=== PATIENT | female | born 1990 | race Caucasian/White ===

== ENCOUNTER → 2016-12-16 | Outpatient (CLI) | payer OTHER ==
--- NOTE | 2016-12-16 12:24 | WWHP ---
DATE OF SERVICE: 12/16/2016 CHIEF COMPLAINT: The patient is here for her routine gynecologic exam. HPI: This is a 26-year-old G0 with an LMP of 12/07/16. The patient is sexually active and has used spermicide and withdrawal for control. She states she was given a steroid shot for her eczema about 2 months ago and states she has had 2 periods per month during the past 2 months since that injection. The patient is otherwise without complaints. She is interested in oral contraception for control. PAST MEDICAL HISTORY: Type 2 diabetes, eczema and borderline hypertension. Dr. Duval is her primary care physician. MEDICATIONS: 1. Metformin 500 mg b.i.d. 2. Lisinopril 2.5 mg q. day. Allergies to PENICILLIN which causes hives. Past surgical history is unremarkable. 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 She has no history of STDs. SOCIAL HISTORY: She denies tobacco and drug use and has 0 to 3 alcoholic drinks per year. She has had a total of 3 sexual partners in her lifetime. She has been with her boyfriend for 2 years, but does not live with him. She is currently unemployed. FAMILY HISTORY: Mother had uterine cancer. Maternal grandmother had breast cancer. Grandfather had heart disease. Both parents and a grandmother have diabetes. REVIEW OF SYSTEMS: Weight has been stable. She denies respiratory, cardiac, or GI problems. PHYSICAL EXAM: Blood pressure initially was 138/95, repeat blood pressure is 120/62. Height 5 feet 5 inches. Weight 231 pounds. Temperature 98.0, pulse 106. This a well-developed, heavyset white female who is alert and oriented x3 in no acute distress. HEENT is within normal limits. NECK: Supple without mass or thyromegaly. CHEST AND LUNGS: Clear to auscultation. HEART: Regular rate and rhythm. BREAST EXAM: There are no palpable masses or tenderness but there is a boil noted at the 12 o'clock position in the skin of the left breast which she states has been there for about 2 weeks. This is mildly erythematous and nontender. There is no drainage noted. Axillary exam is negative for adenopathy. BACK: Negative for CVA tenderness. ABDOMEN: Mildly obese, soft, nontender, without palpable masses. PELVIC EXAM: Normal external genitalia. Cervix and vagina appear normal. There is no unusual discharge. There is no cervical motion tenderness. The uterus is midposition, nongravid size and nontender. There are no palpable adnexal masses or tenderness. Bimanual exam is somewhat limited secondary to her size. Rectal exam was deferred. EXTREMITIES: Nontender. There are signs of eczema on both lower extremities. IMPRESSION: 1. A 26-year-old female within normal pelvic examination. 2. Left breast skin boil, which appears benign. 3. History of diabetes and borderline hypertension. PLAN: 1. Pap smear was performed. 2. Self breast examination was discussed. 3. GC and Chlamydia screening from the cervix have been obtained. 4. We had a long discussion regarding control options including barrier methods, hormonal methods, and the IUD. Because of her medical history including borderline hypertension and diabetes, I think combination control pills would be a higher risk for her because of the increased risk for clots, heart attack and stroke. After a long discussion, we have decided to proceed with progestin only contraception and a prescription for Micronor was given to the patient. She understands that this may be less effective than combination oral contraception for preventing . I have recommended that she use an additional control method such as condoms or spermicide to increase effectiveness. I have also recommended that she consider condom use if she is sexually active for STD prevention. 5. We have discussed how she should take the control pill at the same time every day at approximately 4 to 6 p.m. if she is sexually active at night. I have recommended that she start the first pack of pills on the first day of her next normal menstrual period. 6. She will call if she is having problems including menstrual problems or side effects from the control pills. She understands she may not have regular menses with the progestin only contraception. 7. I have also recommended that she check her blood pressure on a regular basis while on control pills and to call if she is having significant blood pressure elevations. 8. Warm compresses to left breast boil. 9. She will return in one year and p.r.n. MTDD
== END | disposition home or self-care (01) ==
LOC: WWCWWP 10:49
PROVIDERS: ATTEND Obstetrics & Gynecology
DX: Z11.3 Encounter for screening for infections with a predominantly sexual mode of transmission (principal)
CPT/HCPCS: 87491; 87591

== ENCOUNTER 2017-04-22 15:27 | Inpatient (IN) | payer OTHER ==
--- NOTE | 2017-04-22 16:11 | ED ---
General Adult HPI - General Chief complaint: Allergic Reaction Stated complaint: Vomiting Time Seen by Provider: 04/22/17 15:59 Source: patient, family, RN notes reviewed Mode of arrival: ambulatory Limitations: no limitations - History of Present Illness Initial comments: Patient is a pleasant 26-year-old female presenting to the emergency department with concern for medication reaction. Patient states onset of symptoms was a few days ago. Patient did have her medication changed on Thursday and questions if this was the reason. Patient did have a couple episodes of emesis this morning. No chest pain. No abdominal pain. No fevers. No swelling of the throat or tongue or face. No new rash. Patient does have chronic rash related to eczema that she has seen a document design specialist for and has been present for years. - Related Data Home Medications Medication Instructions Recorded Confirmed Empagliflozin [Jardiance] 10 mg PO DAILY 04/22/17 04/22/17 Lisinopril [Zestril] 2.5 mg PO DAILY 04/22/17 04/22/17 sitaGLIPtin [Januvia] 100 mg PO DAILY 04/22/17 04/22/17 Allergies Allergy/AdvReac Type Severity Reaction Status Date / Time Penicillins Allergy Unknown Verified 04/22/17 16:36 Childhood shellfish derived [Shrimp] Allergy Rash/Hives Verified 04/22/17 16:36 Review of Systems ROS Statement: Those systems with pertinent positive or pertinent negative responses have been documented in the HPI. ROS Other: All systems not noted in ROS Statement are negative. Constitutional: Denies: fever Eyes: Denies: eye pain ENT: Denies: ear pain, throat pain Respiratory: Reports: dyspnea. Denies: cough Cardiovascular: Denies: chest pain, palpitations Endocrine: Denies: fatigue Gastrointestinal: Reports: nausea, vomiting. Denies: abdominal pain Genitourinary: Denies: dysuria Musculoskeletal: Denies: back pain Skin: Denies: lesions Past Medical History Past Medical History: Diabetes Mellitus, Skin Disorder History of Any Multi-Drug Resistant Organisms: None Reported Past Surgical History: No Surgical Hx Reported Past Psychological History: No Psychological Hx Reported Smoking Status: Never smoker Past Alcohol Use History: None Reported Past Drug Use History: None Reported General Exam Limitations: no limitations General appearance: alert, in no apparent distress Head exam: Present: atraumatic Eye exam: Present: normal appearance, PERRL ENT exam: Present: normal oropharynx, other (No signs of angioedema) Neck exam: Present: normal inspection Respiratory exam: Present: normal lung sounds bilaterally. Absent: respiratory distress, wheezes Cardiovascular Exam: Present: tachycardia GI/Abdominal exam: Present: soft. Absent: distended, tenderness Extremities exam: Present: normal inspection. Absent: pedal edema, calf tenderness Back exam: Present: normal inspection Neurological exam: Present: alert Psychiatric exam: Present: normal affect, normal mood Skin exam: Present: other (Patient has plaques with erythematous base bilateral legs and elbows that she states is chronic.) Course Vital Signs 04/22/17 04/22/17 04/22/17 15:44 17:09 17:35 Temperature 97.8 F Pulse Rate 138 H 115 H 117 H Respiratory 18 18 18 Rate Blood Pressure 168/106 116/89 121/85 O2 Sat by Pulse 98 95 100 Oximetry 04/22/17 18:24 Temperature 98.3 F Pulse Rate 115 H Respiratory 16 Rate Blood Pressure 124/77 O2 Sat by Pulse 98 Oximetry EKG Findings - EKG Comments: EKG Findings:: Sinus tachycardia 119. WA 124. QRS 72. QT 318. QTC 447. Normal axis. Normal QRS. No acute ST change. Procedures - ABG Interpretation Ph: 7.26 PCO2: 19.3 PO2: 146 Bicarbonate: 8.4 Medical Decision Making - Medical Decision Making Patient reevaluated and updated. Patient has significant metabolic acidosis. Likely cause is DKA although is slightly cloudy pitcher with near normal blood sugar. Case was discussed in detail with Dr. Duval, who will admit his patient. He recommends IV fluids. Patient and family updated. - Lab Data Result diagrams: 04/22/17 16:15 04/22/17 16:15 Lab Results 04/22/17 04/22/17 04/22/17 Range/Units 16:15 16:15 16:15 WBC 9.9 (3.8-10.6) k/uL RBC 5.55 H (3.80-5.40) m/uL Hgb 15.8 (11.4-16.0) gm/dL Hct 46.6 H (34.0-46.0) % MCV 84.0 (80.0-100.0) fL MCH 28.5 (25.0-35.0) pg MCHC 33.9 (31.0-37.0) g/dL RDW 13.9 (11.5-15.5) % Plt Count 385 (150-450) k/uL Neutrophils % 72 % Lymphocytes % 18 % Monocytes % 6 % Eosinophils % 2 % Basophils % 0 % Neutrophils # 7.1 (1.3-7.7) k/uL Lymphocytes # 1.8 (1.0-4.8) k/uL Monocytes # 0.6 (0-1.0) k/uL Eosinophils # 0.2 (0-0.7) k/uL Basophils # 0.0 (0-0.2) k/uL PT (9.0-12.0) sec INR (<1.2) APTT (22.0-30.0) sec D-Dimer (<0.60) mg/L FEU Sample Site ABG pH (7.35-7.45) ABG pCO2 (35-45) mmHg ABG pO2 (83-108) mmHg ABG HCO3 (21-25) mmol/L ABG Total CO2 (19-24) mmol/L ABG O2 Saturation (94-97) % ABG Base Excess mmol/L FiO2 % Sodium 137 (137-145) mmol/L Potassium 4.6 (3.5-5.1) mmol/L Chloride 107 (98-107) mmol/L Carbon Dioxide 9 L* (22-30) mmol/L Anion Gap 21 mmol/L BUN 10 (7-17) mg/dL Creatinine 0.77 (0.52-1.04) mg/dL Est GFR (MDRD) Af Amer >60 (>60 ml/min/1.73 sqM) Est GFR (MDRD) Non-Af >60 (>60 ml/min/1.73 sqM) Glucose 141 H (74-99) mg/dL Calcium 9.4 (8.4-10.2) mg/dL Total Bilirubin 1.0 (0.2-1.3) mg/dL AST 47 H (14-36) U/L ALT 98 H (9-52) U/L Alkaline Phosphatase 88 (38-126) U/L Total Creatine Kinase 27 L (30-135) U/L CK-MB (CK-2) <0.2 (0.0-2.4) ng/mL CK-MB (CK-2) Rel Index Troponin I <0.012 (0.000-0.034) ng/mL Total Protein 8.6 H (6.3-8.2) g/dL Albumin 5.1 H (3.5-5.0) g/dL Acetone, Qual (Negative) 04/22/17 04/22/17 04/22/17 Range/Units 16:15 16:15 17:46 WBC (3.8-10.6) k/uL RBC (3.80-5.40) m/uL Hgb (11.4-16.0) gm/dL Hct (34.0-46.0) % MCV (80.0-100.0) fL MCH (25.0-35.0) pg MCHC (31.0-37.0) g/dL RDW (11.5-15.5) % Plt Count (150-450) k/uL Neutrophils % % Lymphocytes % % Monocytes % % Eosinophils % % Basophils % % Neutrophils # (1.3-7.7) k/uL Lymphocytes # (1.0-4.8) k/uL Monocytes # (0-1.0) k/uL Eosinophils # (0-0.7) k/uL Basophils # (0-0.2) k/uL PT 10.6 (9.0-12.0) sec INR 1.0 (<1.2) APTT 24.9 (22.0-30.0) sec D-Dimer 0.28 (<0.60) mg/L FEU Sample Site RRAD ABG pH 7.26 L (7.35-7.45) ABG pCO2 19 L* (35-45) mmHg ABG pO2 146 H (83-108) mmHg ABG HCO3 8 L* (21-25) mmol/L ABG Total CO2 9 L (19-24) mmol/L ABG O2 Saturation 99.0 H (94-97) % ABG Base Excess -17.5 mmol/L FiO2 28 % Sodium (137-145) mmol/L Potassium (3.5-5.1) mmol/L Chloride (98-107) mmol/L Carbon Dioxide (22-30) mmol/L Anion Gap mmol/L BUN (7-17) mg/dL Creatinine (0.52-1.04) mg/dL Est GFR (MDRD) Af Amer (>60 ml/min/1.73 sqM) Est GFR (MDRD) Non-Af (>60 ml/min/1.73 sqM) Glucose (74-99) mg/dL Calcium (8.4-10.2) mg/dL Total Bilirubin (0.2-1.3) mg/dL AST (14-36) U/L ALT (9-52) U/L Alkaline Phosphatase (38-126) U/L Total Creatine Kinase (30-135) U/L CK-MB (CK-2) (0.0-2.4) ng/mL CK-MB (CK-2) Rel Index Troponin I (0.000-0.034) ng/mL Total Protein (6.3-8.2) g/dL Albumin (3.5-5.0) g/dL Acetone, Qual Positive (Negative) Critical Care Time Critical Care Time: Yes Total Critical Care Time: 32 Disposition Clinical Impression: Metabolic acidosis, Diabetic ketoacidosis Disposition: ADMITTED IP TO THIS [facility] Condition: Serious Referrals: Kian Duval MD [Primary Care Provider] - 1-2 days Decision Time: 19:22
[2017-04-22 16:29] LABS: Basophils % (A) 0 %; CH 28.2; CHCM 33.8; Eosinophils # (A) 0.2 k/uL (0-0.7); Eosinophils % (A) 2 %; HCT 46.6 % (34.0-46.0); HDW 3.05; HGB 15.8 gm/dL (11.4-16.0); Luc # (Auto) 0.16; Luc % (Auto) 2; Lymphocytes # (A) 1.8 k/uL (1.0-4.8); Lymphocytes % (A) 18 %; MCH 28.5 pg (25.0-35.0); MCHC 33.9 g/dL (31.0-37.0); Mean Platelet Volume 7.3; Monocytes # (A) 0.6 k/uL (0-1.0); Monocytes % (A) 6 %; Neutrophils # (A) 7.1 k/uL (1.3-7.7); Neutrophils % (A) 72 %; RBC 5.55 m/uL (3.80-5.40); RDW 13.9 % (11.5-15.5); WBC 9.9 k/uL (3.8-10.6); WBC (Perox) 9.14
[2017-04-22 16:39] LABS: ALT 98 U/L (9-52); AST 47 U/L (14-36); Alkaline Phosphatase 88 U/L (38-126); Anion Gap 21 mmol/L; Blood Urea Nitrogen 10 mg/dL (7-17); Calcium 9.4 mg/dL (8.4-10.2); Chloride 107 mmol/L (98-107); Glucose 141 mg/dL (74-99); Non-African American GFR(MDRD) >60 (>60 ml/min/1.73 sqM); Potassium 4.6 mmol/L (3.5-5.1); Sodium 137 mmol/L (137-145); Total Protein 8.6 g/dL (6.3-8.2)
--- NOTE | 2017-04-22 16:45 | XR ---
EXAMINATION TYPE: XR chest 2V DATE OF EXAM: 04/22/2017 COMPARISON: NONE HISTORY: Weakness and dizziness TECHNIQUE: Frontal and lateral views of the chest are obtained. FINDINGS: Heart and mediastinum are normal. Lungs are clear. Diaphragm is normal. Bony thorax and so ft tissues appear normal. IMPRESSION: Normal chest
[2017-04-22 16:47] LABS: Prothrombin Time 10.6 sec (9.0-12.0)
[2017-04-22 16:48] LABS: Partial Thromboplastin Time 24.9 sec (22.0-30.0)
[2017-04-22 16:49] LABS: Carbon Dioxide 9 mmol/L (22-30)
[2017-04-22] MEDS ORDERED: RX INFO: IV CONTRAST WAS GIVEN 1 EACH MISC MISCELLANE PRN (17:05)
[2017-04-22 17:20] LABS: Creatine Kinase 27 U/L (30-135)
[2017-04-22 17:33] LABS: Creatine Kinase MB <0.2 ng/mL (0.0-2.4); Troponin I <0.012 ng/mL (0.000-0.034)
--- NOTE | 2017-04-22 17:39 | CT ---
EXAMINATION TYPE: CT angio chest DATE OF EXAM: 04/22/2017 5:31 PM COMPARISON: NONE HISTORY: Short of breath CT DLP: mGycm Automated exposure control for dose reduction was used. CONTRAST: . There are 3-D post processed images. Contrast was Omnipaque 100 mL.. FINDINGS: The lungs are clear of consolidation. There is no evidence of a pulmonary mass. There is no pleural e ffusion. There is fatty infiltration of the liver. Heart size is normal. There is no pericardial effu ruby. I see no filling defects in the pulmonary arteries. Ascending aorta measures 3.4 cm. The bony thorax is intact. IMPRESSION: NO EVIDENCE OF PULMONARY EMBOLISM. MILD ECTASIA OF THE ASCENDING AORTA.
[2017-04-22 18:05] LABS: ABG PCO2 19 mmHg (35-45); ABG PH 7.26 (7.35-7.45); ABG PO2 146 mmHg (83-108)
[2017-04-22 18:06] LABS: ABG Base Excess -17.5 mmol/L; ABG HCO3 8 mmol/L (21-25); ABG TCO2 9 mmol/L (19-24)
[2017-04-22] MEDS ORDERED: SODIUM CHLORIDE 0.9% 1,000 ML IV STA (18:39)
[2017-04-22] MEDS ORDERED: SODIUM CHLORIDE 0.9% 1,000 ML IV ONE (19:22)
[2017-04-22 19:43] LABS: Glucose,Whole Blood 114 mg/dL (75-99)
[2017-04-22 20:20] VITALS: RESP 18
[2017-04-22 21:01] LABS: Glucose,Whole Blood 124 mg/dL (75-99)
[2017-04-22 21:13] LABS: Anion Gap 19 mmol/L; Blood Urea Nitrogen 7 mg/dL (7-17); Chloride 112 mmol/L (98-107); Glucose 117 mg/dL (74-99); Non-African American GFR(MDRD) >60 (>60 ml/min/1.73 sqM); Phosphorous 2.8 mg/dL (2.5-4.5); Potassium 4.6 mmol/L (3.5-5.1); Sodium 139 mmol/L (137-145)
[2017-04-22 21:14] LABS: Carbon Dioxide 8 mmol/L (22-30)
[2017-04-23 00:37] LABS: Anion Gap 15 mmol/L; Blood Urea Nitrogen 7 mg/dL (7-17); Carbon Dioxide 11 mmol/L (22-30); Chloride 113 mmol/L (98-107); Glucose 164 mg/dL (74-99); Non-African American GFR(MDRD) >60 (>60 ml/min/1.73 sqM); Phosphorous 2.7 mg/dL (2.5-4.5); Potassium 4.2 mmol/L (3.5-5.1); Sodium 139 mmol/L (137-145)
[2017-04-23] MEDS: SODIUM CHLORIDE 0.9% 1,000 ML IV SCH ×3 (04:37→06:47)
[2017-04-23] MEDS: INSULIN REGULAR 100 UNIT in SODIUM CHLORIDE 0.9% 100 ML IV SCH ×2 (04:37→06:46)
[2017-04-23] MEDS: D5-0.45% NACL WITH KCL 20MEQ/L 1,000 ML IV SCH ×2 (04:37→06:46)
[2017-04-23 06:25] LABS: Glucose,Whole Blood 123 mg/dL (75-99)
[2017-04-23 06:43] LABS: ALT 88 U/L (9-52); AST 44 U/L (14-36); Alkaline Phosphatase 71 U/L (38-126); Anion Gap 16 mmol/L; Blood Urea Nitrogen 6 mg/dL (7-17); Calcium 8.7 mg/dL (8.4-10.2); Carbon Dioxide 11 mmol/L (22-30); Chloride 114 mmol/L (98-107); Glucose 125 mg/dL (74-99); Non-African American GFR(MDRD) >60 (>60 ml/min/1.73 sqM); Phosphorous 2.9 mg/dL (2.5-4.5); Potassium 4.6 mmol/L (3.5-5.1); Sodium 141 mmol/L (137-145); Total Bilirubin 0.9 mg/dL (0.2-1.3); Total Protein 6.8 g/dL (6.3-8.2)
--- NOTE | 2017-04-23 08:17 | P.HPIM ---
History of Present Illness H&P Date: 04/23/17 Chief Complaint: Hypoglycemia This is a history of physical 36-year-old white female essentially admitted for medication side effect. We recently started Jardiance because of an A1c of 12 9. She is Ardee on metformin in the past. The patient states that she immediately had side effects to the medication. She also was not eating much carbohydrate. She typically does not check her blood sugar. No significant chest pain or shortness of breath. No nausea, vomiting or diarrhea is stated. However, she had element of metabolic acidosis and was admitted for IV hydration. This is now been corrected and she feels much better. We talked about restarting Januvia with metformin. We will also go ahead and get her to care management in the a.m. Past Medical History Past Medical History: Diabetes Mellitus, Skin Disorder History of Any Multi-Drug Resistant Organisms: None Reported Past Surgical History: No Surgical Hx Reported Past Psychological History: No Psychological Hx Reported Smoking Status: Never smoker Past Alcohol Use History: None Reported Past Drug Use History: None Reported - Past Family History Mother Family Medical History: Cancer, Diabetes Mellitus, Hypertension Medications and Allergies Home Medications Medication Instructions Recorded Confirmed Type Empagliflozin [Jardiance] 10 mg PO DAILY 04/22/17 04/22/17 History Lisinopril [Zestril] 2.5 mg PO DAILY 04/22/17 04/22/17 History sitaGLIPtin [Januvia] 100 mg PO DAILY 04/22/17 04/22/17 History Allergies Allergy/AdvReac Type Severity Reaction Status Date / Time Penicillins Allergy Unknown Verified 04/22/17 16:36 Childhood shellfish derived [Shrimp] Allergy Rash/Hives Verified 04/22/17 16:36 Physical Exam Vitals: Vital Signs Temp Pulse Pulse Resp BP BP Pulse Ox 04/23/17 04:00 97.7 F 103 H 18 138/71 97 04/22/17 20:30 97.8 F 118 H 18 138/71 100 04/22/17 20:18 103 H 18 127/77 99 04/22/17 19:36 105 H 16 120/77 99 04/22/17 18:24 98.3 F 115 H 16 124/77 98 04/22/17 17:35 117 H 18 121/85 100 04/22/17 17:09 115 H 18 116/89 95 04/22/17 15:44 97.8 F 138 H 18 168/106 98 Intake and Output 04/22/17 04/23/17 04/23/17 22:59 06:59 14:59 Intake Total 1500 Balance 1500 Intake: Amount of Fluid Infused ( 1500 ml) Other: Voiding Method Toilet Toilet # Voids 1 Weight 106.141 kg 101.7 kg - Constitutional General appearance: no acute distress - EENT Eyes: EOMI - Neck Neck: no lymphadenopathy - Respiratory Respiratory: bilateral: CTA - Cardiovascular Rhythm: regular Heart sounds: normal: S1, S2 Abnormal Heart Sounds: no systolic murmur - Neurologic Neurologic: CNII-XII intact - Musculoskeletal Musculoskeletal: gait normal Results CBC & Chem 7: 04/22/17 16:15 04/23/17 06:18 Labs: Abnormal Lab Results - Last 24 Hours (Table) 04/22/17 04/22/17 04/22/17 Range/Units 16:15 16:15 16:15 RBC 5.55 H (3.80-5.40) m/uL Hct 46.6 H (34.0-46.0) % ABG pH (7.35-7.45) ABG pCO2 (35-45) mmHg ABG pO2 (83-108) mmHg ABG HCO3 (21-25) mmol/L ABG Total CO2 (19-24) mmol/L ABG O2 Saturation (94-97) % Chloride (98-107) mmol/L Carbon Dioxide 9 L* (22-30) mmol/L BUN (7-17) mg/dL Glucose 141 H (74-99) mg/dL POC Glucose (mg/dL) (75-99) mg/dL AST 47 H (14-36) U/L ALT 98 H (9-52) U/L Total Creatine Kinase 27 L (30-135) U/L Total Protein 8.6 H (6.3-8.2) g/dL Albumin 5.1 H (3.5-5.0) g/dL 04/22/17 04/22/17 04/22/17 Range/Units 17:46 19:29 20:48 RBC (3.80-5.40) m/uL Hct (34.0-46.0) % ABG pH 7.26 L (7.35-7.45) ABG pCO2 19 L* (35-45) mmHg ABG pO2 146 H (83-108) mmHg ABG HCO3 8 L* (21-25) mmol/L ABG Total CO2 9 L (19-24) mmol/L ABG O2 Saturation 99.0 H (94-97) % Chloride 112 H (98-107) mmol/L Carbon Dioxide 8 L* (22-30) mmol/L BUN (7-17) mg/dL Glucose 117 H (74-99) mg/dL POC Glucose (mg/dL) 114 H (75-99) mg/dL AST (14-36) U/L ALT (9-52) U/L Total Creatine Kinase (30-135) U/L Total Protein (6.3-8.2) g/dL Albumin (3.5-5.0) g/dL 04/22/17 04/23/17 04/23/17 Range/Units 20:59 00:17 06:18 RBC (3.80-5.40) m/uL Hct (34.0-46.0) % ABG pH (7.35-7.45) ABG pCO2 (35-45) mmHg ABG pO2 (83-108) mmHg ABG HCO3 (21-25) mmol/L ABG Total CO2 (19-24) mmol/L ABG O2 Saturation (94-97) % Chloride 113 H 114 H (98-107) mmol/L Carbon Dioxide 11 L 11 L (22-30) mmol/L BUN 6 L (7-17) mg/dL Glucose 164 H 125 H (74-99) mg/dL POC Glucose (mg/dL) 124 H (75-99) mg/dL AST 44 H (14-36) U/L ALT 88 H (9-52) U/L Total Creatine Kinase (30-135) U/L Total Protein (6.3-8.2) g/dL Albumin (3.5-5.0) g/dL 04/23/17 Range/Units 06:23 RBC (3.80-5.40) m/uL Hct (34.0-46.0) % ABG pH (7.35-7.45) ABG pCO2 (35-45) mmHg ABG pO2 (83-108) mmHg ABG HCO3 (21-25) mmol/L ABG Total CO2 (19-24) mmol/L ABG O2 Saturation (94-97) % Chloride (98-107) mmol/L Carbon Dioxide (22-30) mmol/L BUN (7-17) mg/dL Glucose (74-99) mg/dL POC Glucose (mg/dL) 123 H (75-99) mg/dL AST (14-36) U/L ALT (9-52) U/L Total Creatine Kinase (30-135) U/L Total Protein (6.3-8.2) g/dL Albumin (3.5-5.0) g/dL Thrombosis Risk Factor Assmnt - Choose All That Apply Each Factor Represents 1 point: Obesity (BMI >25) Thrombosis Risk Factor Assessment Total Risk Factor Score: 1 Thrombosis Risk Factor Assessment Level: Low Risk Assessment and Plan (1) Medication side effect Status: Acute (2) Diabetes mellitus with hypoglycemia Status: Acute (3) Metabolic acidosis Status: Acute Plan: We will go ahead and start metformin with Januvia and discontinued Jardiance. Her laboratories have been now stabilized. She is now out of acidosis at this time. Refer for diabetes care management in a.m. Time with Patient: Less than 30
--- NOTE | 2017-04-23 08:20 | P.DS ---
Providers Date of admission: 04/22/17 19:22 Attending physician: Kian Duval Primary care physician: Kian Duval - Discharge Diagnosis(es) (1) Medication side effect Current Visit: Yes Status: Acute (2) Diabetes mellitus with hypoglycemia Current Visit: Yes Status: Acute (3) Metabolic acidosis Current Visit: Yes Status: Acute Hospital Course: The patient was admitted essentially for acidosis. The patient is now stabilized after IV hydration. We had a long discussion regarding medication side effects. We will discontinue Jardiance and restart Janumet with appropriate education starting the a.m. Otherwise, acidosis has been corrected with appropriate IV hydration. Initial education for medication side effects was given to the patient today. The patient is discharged in stable condition. Patient Condition at Discharge: Serious Plan - Discharge Summary New Discharge Prescriptions: New sitaGLIPtin PHOS/metFORMIN HCL [Janumet 50-500 mg Tablet] 1 each PO BID #60 tab Discontinued sitaGLIPtin [Januvia] 100 mg PO DAILY Empagliflozin [Jardiance] 10 mg PO DAILY No Action Lisinopril [Zestril] 2.5 mg PO DAILY Discharge Medication List Lisinopril [Zestril] 2.5 mg PO DAILY 04/22/17 [History] sitaGLIPtin PHOS/metFORMIN HCL [Janumet 50-500 mg Tablet] 1 each PO BID #60 tab 04/23/17 [Rx] Follow up Appointment(s)/Referral(s): Kian Duval MD [Primary Care Provider] - 1-2 days Discharge Disposition: HOME SELF-CARE
[2017-04-23 10:04] VITALS: BP 133/80; PULSE 90; TEMP 98.2
[2017-04-23 10:56] VITALS: BMI 36.1
[2017-04-23 12:05] LABS: Hemoglobin A1C 9.3 % (4.2-6.1)
== END 2017-04-23 11:57 | disposition home or self-care (01) | DRG 641 ==
LOC: EC 15:27 → 6SEL 19:22
PROVIDERS: ADMIT Family Medicine; ATTEND Family Medicine
DX: E87.2 Acidosis (principal); E11.649 Type 2 diabetes mellitus with hypoglycemia without coma; T38.3X5A Adverse effect of insulin and oral hypoglycemic [antidiabetic] drugs, initial encounter; Z79.84 Long term (current) use of oral hypoglycemic drugs; Z79.899 Other long term (current) drug therapy; Z83.3 Family history of diabetes mellitus; Z88.0 Allergy status to penicillin; Z91.013 Allergy to seafood
CPT/HCPCS: 36415; 36600; 71020; 71275; 80051; 80053; 82009; 82550; 82553; 82565; 82805; 82947; 83036; 83605; 84100; 84484; 84520; 85025; 85379; 85610; 85730; 93005

== ENCOUNTER → 2018-01-12 | Outpatient (CLI) | payer OTHER ==
[2018-01-12 11:39] VITALS: BP 132/92; PULSE 96; RESP 20; TEMP 98.1; BMI 38.9
--- NOTE | 2018-01-12 12:34 | P.HPOB ---
History of Present Illness H&P Date: 01/12/18 Chief Complaint: The patient is here for her routine gynecologic exam. This is a 27-year-old G0 with an LMP of 12/23/2017. She is using abstinence for control. She has not been sexually active for more than one year. She did not use the progestin only -control pill as prescribed last year. She states she has been having some moodiness and short temper feelings the 1 weeks prior to her menses and during her menstrual flow. She states it does improve significantly after each menses. She is interested in learning more about the possibility of getting . Review of Systems She has gained 3 pounds over the last year. She denies respiratory, cardiac, or G.I. problems. Past Medical History Past Medical History: Diabetes Mellitus (Type II diabetes), Hypertension, Skin Disorder (Psoriasis and eczema) History of Any Multi-Drug Resistant Organisms: None Reported Past Surgical History: No Surgical Hx Reported Past Psychological History: No Psychological Hx Reported Smoking Status: Never smoker Past Alcohol Use History: Rare (0 to 3 drinks per year) Past Drug Use History: None Reported - Past Family History Mother Family Medical History: Cancer, Diabetes Mellitus, Hypertension Father Family Medical History: Asthma, Diabetes Mellitus, Hypertension Medications and Allergies Home Medications Medication Instructions Recorded Confirmed Type Lisinopril [Zestril] 2.5 mg PO DAILY 04/22/17 04/22/17 History sitaGLIPtin PHOS/metFORMIN HCL 1 each PO BID #60 tab 04/23/17 Rx [Janumet 50-500 mg Tablet] Allergies Allergy/AdvReac Type Severity Reaction Status Date / Time Penicillins Allergy Unknown Verified 01/12/18 11:40 Childhood shellfish derived [Shrimp] Allergy Rash/Hives Verified 01/12/18 11:40 Exam - Vital Signs Vital signs: Vital Signs Temp Pulse Resp BP 01/12/18 11:31 98.1 F 96 20 132/92 Intake and Output 01/11/18 01/12/18 01/12/18 22:59 06:59 14:59 Other: Weight 106.141 kg Height 5'5" BMI 38.9. This is a well-developed heavyset white female who is alert and oriented times 3 in no acute distress. She has multiple skin changes consistent with psoriasis on both lower extremities and in the areas of her elbows. HEENT: Within normal limits. NECK: Supple without mass or thyromegaly. CHEST AND LUNGS: Clear to auscultation. HEART: Regular rate and rhythm. BREASTS: Are without mass or discharge. AXILLARY EXAM: Negative for adenopathy. BACK: Negative for CVA tenderness. ABDOMEN: Soft, nontender, without palpable masses. PELVIC EXAM: Normal external genitalia. Cervix and vagina appear normal. There is no unusual discharge. There is no evidence of prolapse. The uterus is midposition, nongravid size and nontender. There are no palpable adnexal masses or tenderness. RECTAL EXAM: deferred. EXTREMITIES: Nontender. IMPRESSION: 1. 27-year-old female with normal gynecologic exam using abstinence for control. 2. Premenstrual symptoms including moodiness and feeling short tempered. 3. Contemplating in the future. 4. Multiple medical problems which would make her high risk for . PLAN: 1. Pap smear was deferred since she had a normal one last year. 2. Self breast awareness was discussed. 3. We have had a long discussion regarding her high risk nature for . She understands that poor diabetes control would increase the risk for defects. She also understands that her medications may not be ideal for and that preconception counseling with a perinatologist is recommended. She would like to discuss this with her boyfriend. She will let me know if she would like a referral to see a perinatologist for preconception counseling and evaluation. I have strongly recommended that she take measures not to get until she has gone through this type of counseling. She will continue to abstain at this time. 4. We have discussed her premenstrual symptoms. We have discussed options including non-pharmaceutical recommendations. Stress the importance of good nutrition, decreasing sodium, alcohol, simple sugar and caffeine intake. Also discussed the importance of regular exercise and adequate rest. We've also discussed the option of SSRI treatment. At this time we will go with non- pharmaceutical options and she will call if her symptoms are worsening. 5. She will return in one year and PRN
== END ==
LOC: WWCWWP 11:23
PROVIDERS: ATTEND Obstetrics & Gynecology
DX: Z53.9 Procedure and treatment not carried out, unspecified reason (principal)

== ENCOUNTER 2018-11-12 18:50 | Emergency (ER) | payer OTHER ==
[2018-11-12 18:55] VITALS: TEMP 98.8
[2018-11-12] MEDS ORDERED: SODIUM CHLORIDE 0.9% 1,000 ML IV STA (19:46)
[2018-11-12] MEDS ORDERED: ONDANSETRON 4 MG/2 ML VIAL IVP STA (19:46)
[2018-11-12] MEDS ORDERED: SODIUM CHLORIDE 0.9% 500 ML 500 ML IV STA (19:46)
--- NOTE | 2018-11-12 19:50 | ED ---
Nausea/Vomiting/Diarrhea HPI - General Chief complaint: Nausea/Vomiting/Diarrhea Stated complaint: FLU LIKE SYMPTOMS, VOMITING Time Seen by Provider: 11/12/18 19:36 Source: patient, RN notes reviewed Mode of arrival: ambulatory Limitations: no limitations - History of Present Illness Initial comments: 28-year-old female presents emergency Department with chief complaint of generalized not feeling well. Patient states she's felt off throughout the week , just sick feeling. Patient states she started vomiting today. Patient does have a history of DKA. Patient states that they believe this is caused by her diabetic medications that she was on. Patient is currently on Janumet. Patient states she does feel like her heart racing but states that she's been vomiting for most the day. Patient is currently on her menstrual cycle. Denies any chance . Patient denies any flank pain. Patient states she just has diffuse abdominal discomfort. No cough congestion. Patient's concerned about possible influenza. - Related Data Home Medications Medication Instructions Recorded Confirmed sitaGLIPtin PHOS/metFORMIN HCL 1 tab PO BID 11/12/18 11/12/18 [Janumet 50-1,000 mg Tablet] Previous Rx's Medication Instructions Recorded Ondansetron Odt [Zofran Odt] 4 mg PO Q8HR PRN #10 tab 11/12/18 Allergies Allergy/AdvReac Type Severity Reaction Status Date / Time Penicillins Allergy Unknown Verified 11/12/18 20:06 Childhood shellfish derived [Shrimp] Allergy Rash/Hives Verified 11/12/18 20:06 Review of Systems ROS Statement: Those systems with pertinent positive or pertinent negative responses have been documented in the HPI. ROS Other: All systems not noted in ROS Statement are negative. Past Medical History Past Medical History: Diabetes Mellitus, Hypertension, Skin Disorder Additional Past Medical History / Comment(s): psoriasis History of Any Multi-Drug Resistant Organisms: None Reported Past Surgical History: No Surgical Hx Reported Past Psychological History: No Psychological Hx Reported Smoking Status: Never smoker Past Alcohol Use History: Rare Past Drug Use History: None Reported - Past Family History Mother Family Medical History: Cancer, Diabetes Mellitus, Hypertension Father Family Medical History: Asthma, Diabetes Mellitus, Hypertension General Exam Limitations: no limitations General appearance: alert, in no apparent distress Head exam: Present: atraumatic, normocephalic, normal inspection Eye exam: Present: normal appearance, PERRL, EOMI. Absent: scleral icterus, conjunctival injection, periorbital swelling ENT exam: Present: normal exam, normal oropharynx, mucous membranes moist Neck exam: Present: normal inspection. Absent: tenderness, meningismus, lymphadenopathy Respiratory exam: Present: normal lung sounds bilaterally. Absent: respiratory distress, wheezes, rales, rhonchi, stridor Cardiovascular Exam: Present: normal rhythm, tachycardia, normal heart sounds. Absent: systolic murmur, diastolic murmur, rubs, gallop, clicks GI/Abdominal exam: Present: soft, tenderness (Mild diffuse), normal bowel sounds. Absent: distended, guarding, rebound, rigid Back exam: Absent: CVA tenderness (R), CVA tenderness (L) Skin exam: Present: warm, dry, intact, normal color. Absent: rash Course Vital Signs 11/12/18 11/12/18 11/12/18 18:53 20:30 21:30 Temperature 98.8 F Pulse Rate 126 H 121 H 113 H Respiratory 20 20 20 Rate Blood Pressure 108/70 100/74 117/75 O2 Sat by Pulse 99 95 96 Oximetry Medical Decision Making - Medical Decision Making 28-year-old female presented for nausea vomiting. Patient was tachycardic and initial exam. Patient was hydrated, heart rate is improving. Patient feels better after antiemetics and fluids. Patient is not in DKA. Symptoms related to mild congestion intestinal illness. Patient will follow-up with her PCP and return for any worsening symptoms. Patient we discharged with Zofran. - Lab Data Result diagrams: 11/12/18 20:20 11/12/18 20:20 Lab Results 11/12/18 11/12/18 11/12/18 Range/Units 20:00 20:00 20:00 WBC (3.8-10.6) k/uL RBC (3.80-5.40) m/uL Hgb (11.4-16.0) gm/dL Hct (34.0-46.0) % MCV (80.0-100.0) fL MCH (25.0-35.0) pg MCHC (31.0-37.0) g/dL RDW (11.5-15.5) % Plt Count (150-450) k/uL Neutrophils % % Lymphocytes % % Monocytes % % Eosinophils % % Basophils % % Neutrophils # (1.3-7.7) k/uL Lymphocytes # (1.0-4.8) k/uL Monocytes # (0-1.0) k/uL Eosinophils # (0-0.7) k/uL Basophils # (0-0.2) k/uL Sodium (137-145) mmol/L Potassium (3.5-5.1) mmol/L Chloride (98-107) mmol/L Carbon Dioxide (22-30) mmol/L Anion Gap mmol/L BUN (7-17) mg/dL Creatinine (0.52-1.04) mg/dL Est GFR (CKD-EPI)AfAm (>60 ml/min/1.73 sqM) Est GFR (CKD-EPI)NonAf (>60 ml/min/1.73 sqM) Glucose (74-99) mg/dL Calcium (8.4-10.2) mg/dL Total Bilirubin (0.2-1.3) mg/dL AST (14-36) U/L ALT (9-52) U/L Alkaline Phosphatase (38-126) U/L Total Protein (6.3-8.2) g/dL Albumin (3.5-5.0) g/dL Lipase (23-300) U/L Urine Color Light Red Urine Appearance Clear (Clear) Urine pH 5.5 (5.0-8.0) Ur Specific [place] 1.021 (1.001-1.035) Urine Protein 1+ H (Negative) Urine Glucose (UA) Negative (Negative) Urine Ketones 2+ H (Negative) Urine Blood Large H (Negative) Urine Nitrite Negative (Negative) Urine Bilirubin Negative (Negative) Urine Urobilinogen <2.0 (<2.0) mg/dL Ur Leukocyte Esterase Trace H (Negative) Urine RBC >182 H (0-5) /hpf Urine WBC 14 H (0-5) /hpf Ur Squamous Epith Cells 1 (0-4) /hpf Urine Mucus Many H (None) /hpf Urine HCG, Qual Not Detected (Not Detectd) Influenza Type A RNA Not Detected (Not Detectd) Influenza Type B (PCR) Not Detected (Not Detectd) 11/12/18 11/12/18 Range/Units 20:20 20:20 WBC 9.2 (3.8-10.6) k/uL RBC 4.95 (3.80-5.40) m/uL Hgb 13.9 (11.4-16.0) gm/dL Hct 41.8 (34.0-46.0) % MCV 84.4 (80.0-100.0) fL MCH 28.1 (25.0-35.0) pg MCHC 33.3 (31.0-37.0) g/dL RDW 14.0 (11.5-15.5) % Plt Count 264 (150-450) k/uL Neutrophils % 93 % Lymphocytes % 3 % Monocytes % 3 % Eosinophils % 1 % Basophils % 0 % Neutrophils # 8.6 H (1.3-7.7) k/uL Lymphocytes # 0.2 L (1.0-4.8) k/uL Monocytes # 0.3 (0-1.0) k/uL Eosinophils # 0.1 (0-0.7) k/uL Basophils # 0.0 (0-0.2) k/uL Sodium 140 (137-145) mmol/L Potassium 4.9 (3.5-5.1) mmol/L Chloride 108 H (98-107) mmol/L Carbon Dioxide 21 L (22-30) mmol/L Anion Gap 11 mmol/L BUN 13 (7-17) mg/dL Creatinine 0.54 (0.52-1.04) mg/dL Est GFR (CKD-EPI)AfAm >90 (>60 ml/min/1.73 sqM) Est GFR (CKD-EPI)NonAf >90 (>60 ml/min/1.73 sqM) Glucose 152 H (74-99) mg/dL Calcium 9.3 (8.4-10.2) mg/dL Total Bilirubin 1.8 H (0.2-1.3) mg/dL AST 33 (14-36) U/L ALT 37 (9-52) U/L Alkaline Phosphatase 48 (38-126) U/L Total Protein 8.1 (6.3-8.2) g/dL Albumin 4.7 (3.5-5.0) g/dL Lipase 92 (23-300) U/L Urine Color Urine Appearance (Clear) Urine pH (5.0-8.0) Ur Specific [place] (1.001-1.035) Urine Protein (Negative) Urine Glucose (UA) (Negative) Urine Ketones (Negative) Urine Blood (Negative) Urine Nitrite (Negative) Urine Bilirubin (Negative) Urine Urobilinogen (<2.0) mg/dL Ur Leukocyte Esterase (Negative) Urine RBC (0-5) /hpf Urine WBC (0-5) /hpf Ur Squamous Epith Cells (0-4) /hpf Urine Mucus (None) /hpf Urine HCG, Qual (Not Detectd) Influenza Type A RNA (Not Detectd) Influenza Type B (PCR) (Not Detectd) - EKG Data EKG Comments: EKG 420:37 sinus tachycardia with rate of 123 MT 124 QRS 72 QT/QTC 334/478 Disposition Clinical Impression: Nausea & vomiting, Viral illness Disposition: HOME SELF-CARE Condition: Stable Instructions (If sedation given, give patient instructions): Acute Nausea and Vomiting (ED) Additional Instructions: Please return to the Emergency Department if symptoms worsen or any other concerns. Prescriptions: Ondansetron Odt [Zofran Odt] 4 mg PO Q8HR PRN #10 tab PRN Reason: Nausea Is patient prescribed a controlled substance at d/c from ED?: No Referrals: [facility] [Primary Care Provider] - 1-2 days Time of Disposition: 22:10
[2018-11-12 20:21] LABS: Appearance,Urine Clear (Clear); Bilirubin,Urine Negative (Negative); Blood,Urine Large (Negative); Color,Urine Light Red; Glucose,Urine (UA) Negative (Negative); Ketones,Urine 2+ (Negative); Leukocyte Esterase,Urine Trace (Negative); Mucus,Urine Many /hpf; Nitrite,Urine Negative (Negative); PH, Urine 5.5 (5.0-8.0); Protein,Urine 1+ (Negative); RBC,Urine >182 /hpf (0-5); Specific Gravity,Urine 1.021 (1.001-1.035); Squamous Epithelial Cell,Urine 1 /hpf (0-4); Urobilinogen,Urine <2.0 mg/dL (<2.0); WBC,Urine 14 /hpf (0-5)
[2018-11-12 20:44] LABS: Basophils % (A) 0 %; Eosinophils # (A) 0.1 k/uL (0-0.7); Eosinophils % (A) 1 %; HCT 41.8 % (34.0-46.0); HGB 13.9 gm/dL (11.4-16.0); Lymphocytes # (A) 0.2 k/uL (1.0-4.8); Lymphocytes % (A) 3 %; MCH 28.1 pg (25.0-35.0); MCHC 33.3 g/dL (31.0-37.0); MCV 84.4 fL (80.0-100.0); Mean Platelet Volume 6.9; Monocytes # (A) 0.3 k/uL (0-1.0); Monocytes % (A) 3 %; Neutrophils # (A) 8.6 k/uL (1.3-7.7); Neutrophils % (A) 93 %; Platelet Count 264 k/uL (150-450); RBC 4.95 m/uL (3.80-5.40); WBC 9.2 k/uL (3.8-10.6)
[2018-11-12 20:46] LABS: ALT 37 U/L (9-52); AST 33 U/L (14-36); Albumin 4.7 g/dL (3.5-5.0); Alkaline Phosphatase 48 U/L (38-126); Anion Gap 11 mmol/L; Blood Urea Nitrogen 13 mg/dL (7-17); Calcium 9.3 mg/dL (8.4-10.2); Carbon Dioxide 21 mmol/L (22-30); Chloride 108 mmol/L (98-107); Glucose 152 mg/dL (74-99); Lipase 92 U/L (23-300); Potassium 4.9 mmol/L (3.5-5.1); Sodium 140 mmol/L (137-145); Total Bilirubin 1.8 mg/dL (0.2-1.3); Total Protein 8.1 g/dL (6.3-8.2)
[2018-11-12 22:35] VITALS: PULSE 117
[2018-11-12 23:30] VITALS: BP 112/73; RESP 18
== END 2018-11-12 23:30 | disposition home or self-care (01) ==
LOC: EC 18:50
DX: B34.9 Viral infection, unspecified (principal); R11.2 Nausea with vomiting, unspecified; R00.0 Tachycardia, unspecified; Z32.02 Encounter for pregnancy test, result negative; E11.9 Type 2 diabetes mellitus without complications; Z79.84 Long term (current) use of oral hypoglycemic drugs; Z88.0 Allergy status to penicillin; Z91.013 Allergy to seafood
CPT/HCPCS: 36415; 93005; 80053; 83690; 85025; 81001; 81025; 87502; 99284; 96374; 96361 ×3; J2405

== ENCOUNTER → 2019-09-06 | Outpatient (CLI) | payer OTHER ==
[2019-09-06 11:46] VITALS: BP 136/99; PULSE 109; RESP 16; TEMP 98.3
--- NOTE | 2019-09-06 12:19 | P.HPOB ---
History of Present Illness H&P Date: 09/06/19 Chief Complaint: The patient is here for her routine gynecologic exam. This is a 29-year-old G0 with an LMP of 08/25/2019. The patient has been using abstinence for control. She states she has not been sexually active for about 2 years. She states her menstrual periods are regular every month and she can have some cramps. Occasionally she has more extreme cramps like last month. She is otherwise without gynecologic complaints. Review of Systems The patient has gained 2 pounds over the last year. She denies respiratory, cardiac, or G.I. problems. Past Medical History Past Medical History: Diabetes Mellitus, Hypertension, Skin Disorder Additional Past Medical History / Comment(s): Type 2 diabetes. psoriasis and eczema. 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 History of Any Multi-Drug Resistant Organisms: None Reported Past Surgical History: No Surgical Hx Reported Past Psychological History: No Psychological Hx Reported Smoking Status: Never smoker Past Alcohol Use History: Rare (2 per year) Past Drug Use History: None Reported Additional History: She has been with her fianc since about 2014. She has been abstinent. She currently does not work outside of the home. - Past Family History Mother Family Medical History: Cancer, Diabetes Mellitus, Hypertension Additional Family Medical History / Comment(s): Uterine cancer. Father Family Medical History: Asthma, Diabetes Mellitus, Hypertension Medications and Allergies Home Medications Medication Instructions Recorded Confirmed Type sitaGLIPtin PHOS/metFORMIN HCL 1 tab PO BID 11/12/18 09/06/19 History [Janumet 50-1,000 mg Tablet] Allergies Allergy/AdvReac Type Severity Reaction Status Date / Time Penicillins Allergy Unknown Verified 09/06/19 11:46 Childhood shellfish derived [Shrimp] Allergy Rash/Hives Verified 09/06/19 11:46 Exam Vital Signs Temp Pulse Resp BP Pulse Ox 09/06/19 11:39 98.3 F 109 H 16 136/99 97 Intake and Output 09/05/19 09/06/19 09/06/19 22:59 06:59 14:59 Other: Weight 107.048 kg Height 5 feet 4 inches, weight 236 pounds, BMI 40.5. This is a well-developed well-nourished heavyset white female who is alert and oriented times 3 in no acute distress. HEENT: Within normal limits. NECK: Supple without mass or thyromegaly. CHEST AND LUNGS: Clear to auscultation. HEART: Regular rate and rhythm. BREASTS: Are without mass or discharge. AXILLARY EXAM: Negative for adenopathy. BACK: Negative for CVA tenderness. ABDOMEN: Soft, nontender, without palpable masses. PELVIC EXAM: Normal external genitalia. Cervix and vagina appear normal. There is no unusual discharge. There is no evidence of prolapse. The uterus is midposition, nongravid size and nontender. There are no palpable adnexal masses or tenderness. RECTAL EXAM: Refused by the patient. EXTREMITIES: Nontender. IMPRESSION: 1. 29-year-old female using abstinence for control with normal gynecologic exam. 2. Mild dysmenorrhea without any significant physical findings at this time. 3. Elevated blood pressure and is currently off blood pressure medications. PLAN: 1. Pap smear was performed. 2. Self breast awareness was discussed with the patient. 3. I have recommended that she take a daily multivitamin with Folic acid. I have recommended that if she does want to attempt and is sexually active, that she establish with an laboratory clerk who delivers babies so she can discuss preconception planning since she would be high risk based on her medical problems. 4. Anaprox DS 1 twice a day when necessary for menstrual pains. If not covered by insurance, I will prescribe ibuprofen 600 mg 4 times a day when necessary for menstrual pains. The prescription will be sent electronically to [facility] pharmacy on [address]. 5. I have recommended that she check her blood pressure on her own on a regular basis and follow-up with her primary caregiver for blood pressure elevations. 6. She was advised to return in one year for her annual well woman exam.
--- NOTE | 2019-09-14 14:14 | P.PN ---
Progress Note - Text Progress Note Date: 09/14/19 OUTPATIENT FOLLOW-UP NOTE TEST(S)/RESULTS: Pap smear from 09/06/2019 was negative. Fungal organisms consistent with Avis was seen. METHOD OF NOTIFICATION: The patient was notified by phone. PATIENT COMMENTS: The patient states she has been experiencing some vaginal pruritus. She has had yeast infections in the past. DIAGNOSIS: Negative Pap smear. Avis vaginitis. DISCUSSION: PLAN: Diflucan 150 mg by mouth once. The prescription will be sent to [id number] pharmacy on [facility]. She was advised to return in one year for her annual well woman exam.
== END ==
LOC: WWCWWP 11:15
PROVIDERS: ATTEND Obstetrics & Gynecology
DX: Z53.9 Procedure and treatment not carried out, unspecified reason (principal)

== ENCOUNTER → 2022-10-21 | Outpatient (CLI) | payer OTHER ==
[2022-10-21 14:18] VITALS: BP 163/98; PULSE 113; RESP 17; TEMP 98.7
--- NOTE | 2022-10-21 15:09 | P.HPOB ---
History of Present Illness H&P Date: 10/21/22 Chief Complaint: The patient is here for her routine gynecologic exam. This is a 32-year-old G0 with an LMP of 10/05/2022. The patient is without gynecologic complaints. She has been abstinent, but states she may want to start a family some day. Menstrual periods are regular every month. Review of Systems She has gained about 28 pounds over the past 3 years. She denies respiratory or cardiac problems. GI: Occasional nausea and she thinks this may be related to Trulicity, her diabetes medication. Past Medical History Past Medical History: Diabetes Mellitus, Hypertension, Skin Disorder Additional Past Medical History / Comment(s): Type 2 diabetes. psoriasis and eczema. 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 History of Any Multi-Drug Resistant Organisms: None Reported Past Surgical History: No Surgical Hx Reported Past Psychological History: No Psychological Hx Reported Smoking Status: Never smoker, Vaper Past Alcohol Use History: Rare (5 per year) Past Drug Use History: Marijuana (Occasional use, not every day.) Additional History: She has been with her boyfriend since 2014. She lives with him part-time. They have been abstinent. She currently does not work outside of the home. - Past Family History Mother Family Medical History: Cancer, Diabetes Mellitus, Hypertension Additional Family Medical History / Comment(s): Uterine cancer. Father Family Medical History: Asthma, Diabetes Mellitus, Hypertension Medications and Allergies Home Medications Medication Instructions Recorded Confirmed Type sitaGLIPtin PHOS/metFORMIN HCL 1 tab PO BID 11/12/18 10/21/22 History [Janumet 50-1,000 mg Tablet] Ibuprofen 600 mg PO QID PRN #30 tablet 09/06/19 10/21/22 Rx Dulaglutide [Trulicity] 0.75 mg INJ WEEKLY 10/21/22 10/21/22 History Insulin Glargine,Hum.rec.anlog 22 units INJ DAILY 10/21/22 10/21/22 History [Lantus Solostar Pen] Pioglitazone [Actos] 15 mg PO DAILY 10/21/22 10/21/22 History Risankizumab-Rzaa [Skyrizi Pen] 1 unit INJ DIRECTED 10/21/22 10/21/22 History Allergies Allergy/AdvReac Type Severity Reaction Status Date / Time Penicillins Allergy Unknown Verified 10/21/22 14:11 Childhood shellfish derived [Shrimp] Allergy Rash/Hives Verified 10/21/22 14:11 Exam Vital Signs Temp Pulse Resp BP Pulse Ox 10/21/22 14:14 98.7 F 113 H 17 163/98 97 Intake and Output 10/20/22 10/21/22 10/21/22 22:59 06:59 14:59 Other: Weight 119.748 kg Height 5 feet 4 inches, weight 264 pounds, BMI 45.3. This is a well-developed well-nourished heavyset white female who is alert and oriented times 3 in no acute distress. HEENT: Within normal limits. NECK: Supple without mass or thyromegaly. CHEST AND LUNGS: Clear to auscultation. HEART: Regular rate and rhythm. BREASTS: Are without mass or discharge. AXILLARY EXAM: Negative for adenopathy. BACK: Negative for CVA tenderness. ABDOMEN: Soft, nontender, without palpable masses. PELVIC EXAM: Normal external genitalia. Cervix and vagina appear normal. There is no unusual discharge. There is no evidence of prolapse. The uterus is midposition, nongravid size and nontender. There are no palpable adnexal masses or tenderness. Bimanual examination is somewhat limited secondary to her size. RECTAL EXAM: negative for mass or tenderness. EXTREMITIES: Nontender. IMPRESSION: 1. 32-year-old female with normal gynecologic exam, who is abstinent from sexual activity. 2. Elevated blood pressure. PLAN: 1. Pap smear cotest was performed. 2. Self breast awareness was discussed with the patient. We have also discussed symptoms associated with inflammatory breast cancer. 3. Osteoporosis prevention was discussed. I have stressed the importance of adequate calcium, vitamin D and regular exercise. Recommended amounts of calcium and vitamin D were also discussed. 4. Preconception planning was discussed. She understands that she would be considered high risk if she did get . I have recommended that she try losing weight and I have also recommended that if she wants to pursue , that she establish with an ALARM INSTALLATION TECHNICIAN who delivers babies so she can discuss preconception planning for a high-risk person. I recommended that she start a daily multivitamin. She understands I no longer delivers babies and she should see someone else if she plans to get . 5. We have discussed her elevated blood pressure. I have recommended that she check her own blood pressures at home on a regular basis since she does have her own blood pressure cuff. She is to follow-up with her PCP for blood pressure elevations. 6. She was advised to return in one year for her annual well woman exam.
== END ==
LOC: WWCWWP 13:54
PROVIDERS: ATTEND Obstetrics & Gynecology
DX: Z01.419 Encounter for gynecological examination (general) (routine) without abnormal findings (principal); R03.0 Elevated blood-pressure reading, without diagnosis of hypertension; E11.9 Type 2 diabetes mellitus without complications; I10 Essential (primary) hypertension; Z79.4 Long term (current) use of insulin; Z79.84 Long term (current) use of oral hypoglycemic drugs; Z88.0 Allergy status to penicillin; Z91.013 Allergy to seafood